=== PATIENT | female | born 1985 | race Asian ===

== ENCOUNTER → 2016-06-12 | Outpatient (CLI) | payer OTHER ==
[~2016-06-12] MED LIST: PERCOCET 5-3251 EACH PO; TUMS200 MG PO; [UNRECOGNIZED DRUG - OTHER] PO
[2016-06-12 12:47] LABS: BASOPHIL % 0.3 %; EOSINOPHIL % 0.1 %; HEMATOCRIT 44.7 % (33.0-46.0); HEMOGLOBIN 14.7 g/dL (11.0-15.0); IMMATURE GRANULOCYTE % 0.1 %; LYMPHOCYTE # 2.1 K/uL (0.8-4.0); LYMPHOCYTE % 30.3 %; MCH 29.2 pg (27.0-34.0); MCHC 32.9 gm/dL (32.0-36.5); MCV 88.7 fl (83.0-98.0); MONOCYTE # 0.3 K/uL (0.0-1.0); MONOCYTE % 3.6 %; MPV 9.5 fl (9.4-12.4); NEUTROPHIL # (ANC) 4.5 K/uL (1.8-7.8); NEUTROPHIL % 65.6 %; NRBC % 0 /100WBC (0-0.00); PLATELET COUNT 361 K/uL (150-450); RDW-CV 11.8 % (11.9-14.6); WBC 6.9 K/uL (4.0-11.0)
[2016-06-12 12:48] LABS: RBC 5.04 M/uL (3.50-5.50)
[2016-06-12 13:04] LABS: BARBITURATE NEGATIVE (NEGATIVE); COCAINE NEGATIVE (NEGATIVE); OPIATES NEGATIVE (NEGATIVE)
[2016-06-12 13:08] LABS: AMPHETAMINE NEGATIVE (NEGATIVE)
== END ==
LOC: LCOBG 12:34
PROVIDERS: Obstetrics & Gynecology
DX: Z34.81 Encounter for supervision of other normal pregnancy, first trimester (principal)
CPT/HCPCS: G0145